=== PATIENT | female | born 1965 | race Caucasian/White ===

== ENCOUNTER 2016-07-03 09:43 | Emergency (ER) | payer OTHER ==
[2016-07-03 10:43] LABS: HEMOGLOBIN 12.1 gm/dl (12.3-15.3); RED BLOOD COUNT 4.12 M/UL (4.00-5.10); WHITE BLOOD COUNT 12.2 K/UL (4.5-11.0)
== END 2016-07-03 12:10 | disposition home or self-care (01) ==
LOC: ER1 09:43
PROVIDERS: Preventive Medicine Occupational Medicine
DX: J45.909 Unspecified asthma, uncomplicated (principal); J20.9 Acute bronchitis, unspecified; Z87.891 Personal history of nicotine dependence; Z88.8 Allergy status to other drugs, medicaments and biological substances; Z79.899 Other long term (current) drug therapy
CPT/HCPCS: 36415; 71020; 80053; 82550; 82553; 83874; 84484; 85025; 85379; 87040; 93005; 94664; 96374; 96375; 99285; J0696; J2930; J7030; J7050

== ENCOUNTER 2016-07-15 13:41 | Emergency (ER) | payer OTHER ==
[2016-07-15 14:31] LABS: RED BLOOD COUNT 4.41 M/UL (4.00-5.10); WHITE BLOOD COUNT 7.9 K/UL (4.5-11.0)
== END 2016-07-15 17:30 | disposition home or self-care (01) ==
LOC: ER1 13:41
PROVIDERS: Specialist/Technologist Athletic Trainer
DX: N93.9 Abnormal uterine and vaginal bleeding, unspecified (principal); E16.2 Hypoglycemia, unspecified; J44.9 Chronic obstructive pulmonary disease, unspecified; J45.909 Unspecified asthma, uncomplicated; F17.200 Nicotine dependence, unspecified, uncomplicated; Z88.8 Allergy status to other drugs, medicaments and biological substances; Z79.899 Other long term (current) drug therapy; Z86.19 Personal history of other infectious and parasitic diseases
CPT/HCPCS: 76830; 80053; 82962; 85025; 96372; 99284; J2210

== ENCOUNTER → 2016-07-30 | Outpatient (CLI) | payer OTHER | LOC: RAD 10:01 | DX: N23 Unspecified renal colic (principal) | CPT/HCPCS: 74000 ==